=== PATIENT | female | born 1985 | race Caucasian/White ===

== ENCOUNTER 2019-12-31 11:40 | Inpatient (IN) | payer OTHER ==
[~2019-12-31] VITALS: Ht 154.9 cm; Wt 3.6 kg
[2020-01-14] MEDS ORDERED: [UNRECOGNIZED DRUG - OTHER] PO (13:21)
[2020-01-14] MEDS ORDERED: FOLIC ACID1 MG PO (13:21)
[2020-01-24] MEDS ORDERED: KETO10TA2 PO (10:11)
[2020-01-24] MEDS ORDERED: OXYC1TAB9 PO (10:11)
== END 2020-01-24 14:02 | disposition home or self-care (01) | DRG 785 ==
LOC: O/R 01-22 10:14 → LDR 01-22 10:15 → OB/GYN 01-22 17:30
PROVIDERS: ADMIT Obstetrics & Gynecology Maternal & Fetal Medicine
PROC: 0UL70ZZ Occlusion of Bilateral Fallopian Tubes, Open Approach (ICD-10-PCS; 2020-01-22)
PROC: 4A1HXCZ Monitoring of Products of Conception, Cardiac Rate, External Approach (ICD-10-PCS; 2020-01-22)
PROC: 10D00Z1 Extraction of Products of Conception, Low, Open Approach (ICD-10-PCS; principal; 2020-01-22 10:15)
DX: O34.211 Maternal care for low transverse scar from previous cesarean delivery (principal); Z3A.39 39 weeks gestation of pregnancy; Z37.0 Single live birth; Z30.2 Encounter for sterilization